=== PATIENT | female | born 1950 | race Two or more races ===

== ENCOUNTER 2020-05-28 09:26 | Inpatient (IN) | payer MEDICARE, MEDICAID ==
[~2020-05-28] VITALS: Ht 157.5 cm; Wt 91.7 kg
[2020-05-28 10:20] LABS: Basophils # (auto) 0 10 ^3/uL (0-0.2); Basophils % (auto) 0.4 % (0.0-2.0); Eosinophils # (auto) 0 10 ^3/uL (0-0.8); Eosinophils % (auto) 0.1 % (0.0-7.0); Hematocrit 42.8 % (36.0-46.0); Hemoglobin 13.9 g/dL (12.2-16.2); Lymphocytes % (auto) 13.2 % (10.0-50.0); Mean Corpuscular Hemoglobin 29.2 pg (28.0-32.0); Mean Corpuscular Hgb Conc. 32.5 g/dL (32.0-36.0); Mean Corpuscular Volume 89.7 fL (80.0-100.0); Monocytes # (auto) 0.1 10 ^3/uL (0-1.3); Monocytes % (auto) 1.9 % (0.0-12.0); Neutrophils # (auto) 6.5 10 ^3/uL (1.6-8.6); Neutrophils % (auto) 84.4 % (37.0-80.0); Nucleated Red Blood Cells % 0.1 %; Platelet Count (auto) 150 10^3/uL (140-450); Red Blood Cells 4.77 10^6/uL (4.0-5.20); Red Cell Distribution Width 13.8 % (11.8-14.3); White Blood Cell 7.7 10^3/uL (4.4-10.8)
[2020-05-28 10:37] LABS: Albumin 2.6 g/dL (3.4-5.0); Calcium 8.9 mg/dL (8.5-10.1)
[2020-05-28 10:43] LABS: Bilirubin, Total 0.3 mg/dL (0.2-1.0); Total Protein 7.2 g/dL (6.4-8.2)
[2020-05-28] MEDS ORDERED: levoFLOXacin 750MG 150 ML IV ONE (14:45)
[2020-05-28] MEDS ORDERED: REMDESIVIR PER PHARMACY 0 ML IV SCH (16:45)
[2020-05-28] MEDS ORDERED: NITROGLYCERIN 0.4 MG SL TAB SL PRN (16:45)
[2020-05-28] MEDS ORDERED: MORPHINE SULF INJ 2 MG/ML SYRINGE 1ML IV PRN (16:45)
[2020-05-28 18:17] LABS: CRP High Sensitivity 8.92 mg/dL (< 0.3)
[2020-05-28] MEDS: BUDESONIDE (INHALATION) 180 MCG IH IN SCH (20:15)
[2020-05-28] MEDS: ENOXAPARIN SOD 40 MG/0.4 ML SYRINGE SC SCH (21:42)
[2020-05-28] MEDS ORDERED: BUDESONIDE (INHALATION) 0.5 MG/2 ML NEB NEB SCH (22:00)
[2020-05-29 06:09] LABS: Basophils # (auto) 0 10 ^3/uL (0-0.2); Basophils % (auto) 0.1 % (0.0-2.0); Eosinophils # (auto) 0 10 ^3/uL (0-0.8); Hematocrit 38.2 % (36.0-46.0); Hemoglobin 13.5 g/dL (12.2-16.2); Lymphocytes % (auto) 16.2 % (10.0-50.0); Mean Corpuscular Hemoglobin 30.6 pg (28.0-32.0); Mean Corpuscular Hgb Conc. 35.5 g/dL (32.0-36.0); Mean Corpuscular Volume 86.2 fL (80.0-100.0); Monocytes # (auto) 0.4 10 ^3/uL (0-1.3); Monocytes % (auto) 6.4 % (0.0-12.0); Neutrophils # (auto) 4.9 10 ^3/uL (1.6-8.6); Neutrophils % (auto) 77.3 % (37.0-80.0); Platelet Count (auto) 169 10^3/uL (140-450); Red Blood Cells 4.43 10^6/uL (4.0-5.20); Red Cell Distribution Width 13.7 % (11.8-14.3); White Blood Cell 6.3 10^3/uL (4.4-10.8)
[2020-05-29] MEDS: AZITHROMYCIN 500MG/ 250ML 250 ML IV SCH (10:00)
[2020-05-29] MEDS: DexAMETHasone SOD PHOS 10MG/1ML VIAL INJ IV SCH (11:45)
[2020-05-29] MEDS: CHOLECALCIFEROL (VITD3) 2,000 UNIT CAP/TAB PO SCH (11:58)
[2020-05-29] MEDS: ZINC SULFATE 220mg CAP or TAB PO SCH (11:58)
[2020-05-29] MEDS: cefTRIAXone 1GM/50ML D5W 50 ML IV SCH (11:58)
[2020-05-29] MEDS: ENOXAPARIN SOD 40 MG/0.4 ML SYRINGE SC SCH ×2 (11:58→21:39)
[2020-05-29] MEDS: ASCORBIC ACID 1,000 MG TAB PO SCH (11:58)
[2020-05-29] MEDS: FAMOTIDINE 20 MG TAB PO SCH (11:58)
[2020-05-29] MEDS ORDERED: REMDESIVIR 200 MG in NS 210ml LOADING DOSE ADULT IV ONE (15:00)
[2020-05-29] MEDS: MORPHINE SULF INJ 2 MG/ML SYRINGE 1ML IV PRN ×2 (15:21→21:40)
[2020-05-29] MEDS ORDERED: FUROSEMIDE 20 MG/2 ML VIAL IV ONE (18:15)
[2020-05-29 18:47] VITALS: BP 149/77
[2020-05-29] MEDS: BUDESONIDE (INHALATION) 180 MCG IH IN SCH (20:14)
[2020-05-30] VITALS: BP 130/73
[2020-05-30] MEDS: BUDESONIDE (INHALATION) 180 MCG IH IN SCH ×2 (07:04→22:00)
[2020-05-30 08:00] VITALS: BP 137/51
[2020-05-30 08:26] LABS: Basophils # (auto) 0 10 ^3/uL (0-0.2); Basophils % (auto) 0.5 % (0.0-2.0); Eosinophils # (auto) 0 10 ^3/uL (0-0.8); Hematocrit 37.8 % (36.0-46.0); Lymphocytes # (auto) 0.6 10 ^3/uL (0.4-5.4); Lymphocytes % (auto) 10.9 % (10.0-50.0); Mean Corpuscular Hgb Conc. 34.5 g/dL (32.0-36.0); Mean Corpuscular Volume 87.1 fL (80.0-100.0); Monocytes # (auto) 0.5 10 ^3/uL (0-1.3); Monocytes % (auto) 8.4 % (0.0-12.0); Neutrophils # (auto) 4.3 10 ^3/uL (1.6-8.6); Neutrophils % (auto) 80.2 % (37.0-80.0); Nucleated Red Blood Cells % 0.1 %; Platelet Count (auto) 207 10^3/uL (140-450); Red Blood Cells 4.34 10^6/uL (4.0-5.20); Red Cell Distribution Width 13.5 % (11.8-14.3); White Blood Cell 5.4 10^3/uL (4.4-10.8)
[2020-05-30 09:01] LABS: Albumin 2.6 g/dL (3.4-5.0); Calcium 9.1 mg/dL (8.5-10.1); Potassium 3.7 mmol/L (3.5-5.1)
[2020-05-30 09:10] LABS: Bilirubin, Total 0.4 mg/dL (0.2-1.0); CRP High Sensitivity 5.9 mg/dL (< 0.3); Total Protein 7.6 g/dL (6.4-8.2)
[2020-05-30] MEDS: FAMOTIDINE 20 MG TAB PO SCH ×2 (10:00→10:25)
[2020-05-30] MEDS: cefTRIAXone 1GM/50ML D5W 50 ML IV SCH (10:23)
[2020-05-30] MEDS: ZINC SULFATE 220mg CAP or TAB PO SCH (10:24)
[2020-05-30] MEDS: FUROSEMIDE 20 MG/2 ML VIAL IV SCH (10:24)
[2020-05-30] MEDS: DexAMETHasone SOD PHOS 10MG/1ML VIAL INJ IV SCH (10:24)
[2020-05-30] MEDS: CHOLECALCIFEROL (VITD3) 2,000 UNIT CAP/TAB PO SCH (10:25)
[2020-05-30] MEDS: ASCORBIC ACID 1,000 MG TAB PO SCH (10:25)
[2020-05-30] MEDS: ENOXAPARIN SOD 40 MG/0.4 ML SYRINGE SC SCH ×2 (10:25→22:27)
[2020-05-30] MEDS ORDERED: HYDROCORTISONE ACET 25 MG RECTAL SUPP PR PRN (11:15)
[2020-05-30] MEDS: AZITHROMYCIN 500MG/ 250ML 250 ML IV SCH (11:55)
[2020-05-30 16:00] VITALS: BP 139/88
[2020-05-30] MEDS: REMDESIVIR 100 MG in SODIUM CHL 0.9% 250 ML IV SCH (16:51)
[2020-05-30] MEDS: HYDROcodone-ACET 5/325MG TAB PO PRN (18:44)
[2020-05-31] VITALS: BP 151/74
[2020-05-31 07:06] LABS: Basophils # (auto) 0 10 ^3/uL (0-0.2); Basophils % (auto) 0.1 % (0.0-2.0); Eosinophils # (auto) 0 10 ^3/uL (0-0.8); Hematocrit 40.7 % (36.0-46.0); Hemoglobin 14.1 g/dL (12.2-16.2); Lymphocytes # (auto) 0.6 10 ^3/uL (0.4-5.4); Lymphocytes % (auto) 8.1 % (10.0-50.0); Mean Corpuscular Hemoglobin 30.3 pg (28.0-32.0); Mean Corpuscular Hgb Conc. 34.7 g/dL (32.0-36.0); Mean Corpuscular Volume 87.3 fL (80.0-100.0); Monocytes # (auto) 0.8 10 ^3/uL (0-1.3); Monocytes % (auto) 11.3 % (0.0-12.0); Neutrophils # (auto) 5.9 10 ^3/uL (1.6-8.6); Neutrophils % (auto) 80.5 % (37.0-80.0); Nucleated Red Blood Cells % 0.1 %; Platelet Count (auto) 251 10^3/uL (140-450); Red Blood Cells 4.67 10^6/uL (4.0-5.20); Red Cell Distribution Width 13.1 % (11.8-14.3); White Blood Cell 7.4 10^3/uL (4.4-10.8)
[2020-05-31 08:00] VITALS: BP 144/82
[2020-05-31] MEDS: BUDESONIDE (INHALATION) 180 MCG IH IN SCH ×2 (10:00→21:25)
[2020-05-31] MEDS: cefTRIAXone 1GM/50ML D5W 50 ML IV SCH (10:42)
[2020-05-31] MEDS: DexAMETHasone SOD PHOS 10MG/1ML VIAL INJ IV SCH (10:42)
[2020-05-31] MEDS: ZINC SULFATE 220mg CAP or TAB PO SCH (10:45)
[2020-05-31] MEDS: CHOLECALCIFEROL (VITD3) 2,000 UNIT CAP/TAB PO SCH (10:46)
[2020-05-31] MEDS: FAMOTIDINE 20 MG TAB PO SCH (10:46)
[2020-05-31] MEDS: ASCORBIC ACID 1,000 MG TAB PO SCH (10:46)
[2020-05-31] MEDS: ENOXAPARIN SOD 40 MG/0.4 ML SYRINGE SC SCH ×2 (10:48→21:41)
[2020-05-31] MEDS: AZITHROMYCIN 500MG/ 250ML 250 ML IV SCH (10:48)
[2020-05-31] MEDS: MORPHINE SULF INJ 2 MG/ML SYRINGE 1ML IV PRN ×2 (10:49→18:57)
[2020-05-31] MEDS: FUROSEMIDE 20 MG/2 ML VIAL IV SCH (11:11)
[2020-05-31 16:00] VITALS: BP 134/70
[2020-05-31] MEDS: REMDESIVIR 100 MG in SODIUM CHL 0.9% 250 ML IV SCH (16:10)
[2020-05-31 23:57] VITALS: BP 106/56
[2020-06-01] MEDS: ACETAMINOPHEN 500 MG TAB PO PRN (01:50)
[2020-06-01] MEDS: ALBUTEROL SULF HFA 90MCG INH 200DOSE IN PRN ×2 (03:42→20:03)
[2020-06-01] MEDS: LORazepam 2MG/ML-1ML VIAL IV PRN ×3 (05:24→23:23)
[2020-06-01 05:52] VITALS: BP 146/97
[2020-06-01 08:00] VITALS: BP 121/64
[2020-06-01] MEDS: ENOXAPARIN SOD 40 MG/0.4 ML SYRINGE SC SCH ×2 (10:00→21:49)
[2020-06-01] MEDS: BUDESONIDE (INHALATION) 180 MCG IH IN SCH ×2 (10:00→20:03)
[2020-06-01] MEDS: DexAMETHasone SOD PHOS 10MG/1ML VIAL INJ IV SCH (10:02)
[2020-06-01] MEDS: cefTRIAXone 1GM/50ML D5W 50 ML IV SCH (10:02)
[2020-06-01] MEDS: FUROSEMIDE 20 MG/2 ML VIAL IV SCH (10:03)
[2020-06-01] MEDS: ZINC SULFATE 220mg CAP or TAB PO SCH (10:04)
[2020-06-01] MEDS: AZITHROMYCIN 500MG/ 250ML 250 ML IV SCH (10:04)
[2020-06-01] MEDS: CHOLECALCIFEROL (VITD3) 2,000 UNIT CAP/TAB PO SCH (10:04)
[2020-06-01] MEDS: ASCORBIC ACID 1,000 MG TAB PO SCH (10:04)
[2020-06-01] MEDS: FAMOTIDINE 20 MG TAB PO SCH (10:05)
[2020-06-01] MEDS ORDERED: SODIUM CHLORIDE 0.9 % NEB SOLN 3ML NEB ONE (12:30)
[2020-06-01 16:00] VITALS: BP 103/95
[2020-06-01] MEDS: REMDESIVIR 100 MG in SODIUM CHL 0.9% 250 ML IV SCH (17:19)
[2020-06-01 23:24] VITALS: BP 115/58
[2020-06-02] VITALS (7 sets, daily range): BP systolic 107–133; BP diastolic 52–79
[2020-06-02] MEDS: BUDESONIDE (INHALATION) 180 MCG IH IN SCH ×2 (07:07→19:20)
[2020-06-02 08:51] LABS: Albumin 2.7 g/dL (3.4-5.0); BUN/Creatinine Ratio 40.9; Calcium 8.8 mg/dL (8.5-10.1); Potassium 3.4 mmol/L (3.5-5.1)
[2020-06-02] MEDS: ALBUTEROL SULF HFA 90MCG INH 200DOSE IN PRN ×2 (08:56→20:38)
[2020-06-02 09:12] LABS: Bilirubin, Total 0.5 mg/dL (0.2-1.0); Total Protein 6.8 g/dL (6.4-8.2)
[2020-06-02] MEDS: ENOXAPARIN SOD 40 MG/0.4 ML SYRINGE SC SCH ×2 (10:24→21:44)
[2020-06-02] MEDS: DexAMETHasone SOD PHOS 10MG/1ML VIAL INJ IV SCH (10:24)
[2020-06-02] MEDS: ZINC SULFATE 220mg CAP or TAB PO SCH (10:24)
[2020-06-02] MEDS: ASCORBIC ACID 1,000 MG TAB PO SCH (10:24)
[2020-06-02] MEDS: cefTRIAXone 1GM/50ML D5W 50 ML IV SCH (10:24)
[2020-06-02] MEDS: FUROSEMIDE 20 MG/2 ML VIAL IV SCH (10:25)
[2020-06-02] MEDS: CHOLECALCIFEROL (VITD3) 2,000 UNIT CAP/TAB PO SCH (10:25)
[2020-06-02] MEDS: FAMOTIDINE 20 MG TAB PO SCH (10:25)
[2020-06-02] MEDS: AZITHROMYCIN 500MG/ 250ML 250 ML IV SCH (11:06)
[2020-06-02] MEDS: LORazepam 2MG/ML-1ML VIAL IV PRN ×2 (11:06→21:44)
[2020-06-02] MEDS: REMDESIVIR 100 MG in SODIUM CHL 0.9% 250 ML IV SCH (16:58)
[2020-06-03] VITALS: BP 133/74
[2020-06-03 08:00] VITALS: BP 119/74
[2020-06-03] MEDS: cefTRIAXone 1GM/50ML D5W 50 ML IV SCH (08:47)
[2020-06-03] MEDS: FUROSEMIDE 20 MG/2 ML VIAL IV SCH (09:47)
[2020-06-03] MEDS: AZITHROMYCIN 500MG/ 250ML 250 ML IV SCH (09:47)
[2020-06-03] MEDS: ENOXAPARIN SOD 40 MG/0.4 ML SYRINGE SC SCH ×2 (09:48→21:27)
[2020-06-03] MEDS: CHOLECALCIFEROL (VITD3) 2,000 UNIT CAP/TAB PO SCH (09:48)
[2020-06-03] MEDS: ASCORBIC ACID 1,000 MG TAB PO SCH (09:48)
[2020-06-03] MEDS: DexAMETHasone SOD PHOS 10MG/1ML VIAL INJ IV SCH (09:48)
[2020-06-03] MEDS: ZINC SULFATE 220mg CAP or TAB PO SCH (09:48)
[2020-06-03] MEDS: FAMOTIDINE 20 MG TAB PO SCH (09:48)
[2020-06-03] MEDS: BUDESONIDE (INHALATION) 180 MCG IH IN SCH ×2 (10:00→20:37)
[2020-06-03] MEDS: ONDANSETRON HCL 4 MG/2 ML VIAL IV PRN (10:23)
[2020-06-03 16:00] VITALS: BP 111/71
[2020-06-03] MEDS: ALBUTEROL SULF HFA 90MCG INH 200DOSE IN PRN (20:37)
[2020-06-03] MEDS: LORazepam 2MG/ML-1ML VIAL IV PRN (21:28)
[2020-06-04] VITALS: BP 119/69
[2020-06-04 07:06] LABS: Basophils # (auto) 0 10 ^3/uL (0-0.2); Basophils % (auto) 0.1 % (0.0-2.0); Eosinophils # (auto) 0 10 ^3/uL (0-0.8); Hematocrit 40.7 % (36.0-46.0); Hemoglobin 13.8 g/dL (12.2-16.2); Lymphocytes # (auto) 0.7 10 ^3/uL (0.4-5.4); Lymphocytes % (auto) 4.9 % (10.0-50.0); Mean Corpuscular Hemoglobin 29.2 pg (28.0-32.0); Mean Corpuscular Volume 85.9 fL (80.0-100.0); Monocytes # (auto) 0.8 10 ^3/uL (0-1.3); Monocytes % (auto) 5.1 % (0.0-12.0); Neutrophils # (auto) 13.6 10 ^3/uL (1.6-8.6); Neutrophils % (auto) 89.9 % (37.0-80.0); Platelet Count (auto) 322 10^3/uL (140-450); Red Blood Cells 4.73 10^6/uL (4.0-5.20); White Blood Cell 15.1 10^3/uL (4.4-10.8)
[2020-06-04 07:22] LABS: Albumin 2.5 g/dL (3.4-5.0); Calcium 8.7 mg/dL (8.5-10.1); Potassium 3.8 mmol/L (3.5-5.1)
[2020-06-04 07:32] LABS: BUN/Creatinine Ratio 38.8; Bilirubin, Total 0.4 mg/dL (0.2-1.0); CRP High Sensitivity 3.62 mg/dL (< 0.3); Total Protein 6.8 g/dL (6.4-8.2)
[2020-06-04 08:00] VITALS: BP 111/64
[2020-06-04] MEDS: cefTRIAXone 1GM/50ML D5W 50 ML IV SCH (08:51)
[2020-06-04] MEDS: BUDESONIDE (INHALATION) 180 MCG IH IN SCH ×3 (08:51→20:20)
[2020-06-04] MEDS: FUROSEMIDE 20 MG/2 ML VIAL IV SCH (08:51)
[2020-06-04] MEDS: DexAMETHasone SOD PHOS 10MG/1ML VIAL INJ IV SCH (08:51)
[2020-06-04] MEDS: ZINC SULFATE 220mg CAP or TAB PO SCH (08:52)
[2020-06-04] MEDS: ENOXAPARIN SOD 40 MG/0.4 ML SYRINGE SC SCH ×2 (08:52→21:44)
[2020-06-04] MEDS: FAMOTIDINE 20 MG TAB PO SCH (08:52)
[2020-06-04] MEDS: ASCORBIC ACID 1,000 MG TAB PO SCH (08:52)
[2020-06-04] MEDS: CHOLECALCIFEROL (VITD3) 2,000 UNIT CAP/TAB PO SCH (08:52)
[2020-06-04] MEDS: HYDROcodone-ACET 5/325MG TAB PO PRN (08:54)
[2020-06-04] MEDS: ALBUTEROL SULF HFA 90MCG INH 200DOSE IN PRN ×2 (12:59→20:20)
[2020-06-04 16:00] VITALS: BP 110/61
[2020-06-04] MEDS: LORazepam 2MG/ML-1ML VIAL IV PRN (21:44)
[2020-06-05] VITALS: BP 127/73
[2020-06-05] MEDS: ALBUTEROL SULF HFA 90MCG INH 200DOSE IN PRN ×2 (07:45→20:50)
[2020-06-05 08:00] VITALS: BP 108/45
[2020-06-05] MEDS: cefTRIAXone 1GM/50ML D5W 50 ML IV SCH (09:00)
[2020-06-05] MEDS: DexAMETHasone SOD PHOS 10MG/1ML VIAL INJ IV SCH (09:54)
[2020-06-05] MEDS: FUROSEMIDE 20 MG/2 ML VIAL IV SCH (09:54)
[2020-06-05] MEDS: ASCORBIC ACID 1,000 MG TAB PO SCH (09:55)
[2020-06-05] MEDS: ZINC SULFATE 220mg CAP or TAB PO SCH (09:55)
[2020-06-05] MEDS: ENOXAPARIN SOD 40 MG/0.4 ML SYRINGE SC SCH ×2 (09:55→22:26)
[2020-06-05] MEDS: CHOLECALCIFEROL (VITD3) 2,000 UNIT CAP/TAB PO SCH (09:55)
[2020-06-05] MEDS: FAMOTIDINE 20 MG TAB PO SCH (09:55)
[2020-06-05] MEDS: ONDANSETRON HCL 4 MG/2 ML VIAL IV PRN (10:53)
[2020-06-05] MEDS ORDERED: FLUCONAZOLE 100 MG TAB PO ONE (11:45)
[2020-06-05] MEDS: guaiFENesin-DM 100/10mg/5ml SYR PO PRN ×2 (12:32→18:16)
[2020-06-05 15:59] VITALS: BP 111/74
[2020-06-05] MEDS: BUDESONIDE (INHALATION) 180 MCG IH IN SCH (20:55)
[2020-06-05 23:38] VITALS: BP 90/58
[2020-06-06] MEDS: guaiFENesin-DM 100/10mg/5ml SYR PO PRN ×3 (00:27→17:30)
[2020-06-06] MEDS: BUDESONIDE (INHALATION) 180 MCG IH IN SCH ×2 (06:48→20:03)
[2020-06-06] MEDS: ALBUTEROL SULF HFA 90MCG INH 200DOSE IN PRN ×2 (07:24→20:03)
[2020-06-06 08:00] VITALS: BP 135/70
[2020-06-06] MEDS: cefTRIAXone 1GM/50ML D5W 50 ML IV SCH (09:11)
[2020-06-06] MEDS: DexAMETHasone SOD PHOS 10MG/1ML VIAL INJ IV SCH (09:11)
[2020-06-06] MEDS: FUROSEMIDE 20 MG/2 ML VIAL IV SCH (09:12)
[2020-06-06] MEDS: ZINC SULFATE 220mg CAP or TAB PO SCH (09:12)
[2020-06-06] MEDS: ASCORBIC ACID 1,000 MG TAB PO SCH (09:13)
[2020-06-06] MEDS: FAMOTIDINE 20 MG TAB PO SCH (09:13)
[2020-06-06] MEDS: CHOLECALCIFEROL (VITD3) 2,000 UNIT CAP/TAB PO SCH (09:13)
[2020-06-06] MEDS: FLUCONAZOLE 100 MG TAB PO SCH (09:13)
[2020-06-06] MEDS: ENOXAPARIN SOD 40 MG/0.4 ML SYRINGE SC SCH ×2 (09:14→22:18)
[2020-06-06 13:00] VITALS: BP 122/61
[2020-06-06 17:00] VITALS: BP 118/67
[2020-06-06 20:00] VITALS: BP 118/67
[2020-06-06] MEDS: LORazepam 2MG/ML-1ML VIAL IV PRN (22:18)
[2020-06-07] VITALS: BP 121/68
[2020-06-07 00:20] VITALS: BP 121/68
[2020-06-07] MEDS: HALOPERIDOL LACTATE 5 MG/ML INJ VIAL IM PRN (02:07)
[2020-06-07] MEDS: guaiFENesin-DM 100/10mg/5ml SYR PO PRN ×2 (04:37→16:26)
[2020-06-07 08:00] VITALS: BP 150/74
[2020-06-07] MEDS: FUROSEMIDE 20 MG/2 ML VIAL IV SCH (10:00)
[2020-06-07] MEDS: BUDESONIDE (INHALATION) 180 MCG IH IN SCH ×2 (10:22→19:15)
[2020-06-07] MEDS: ALBUTEROL SULF HFA 90MCG INH 200DOSE IN PRN ×2 (10:22→21:00)
[2020-06-07] MEDS: DexAMETHasone SOD PHOS 10MG/1ML VIAL INJ IV SCH (11:00)
[2020-06-07] MEDS: cefTRIAXone 1GM/50ML D5W 50 ML IV SCH (11:00)
[2020-06-07] MEDS: ENOXAPARIN SOD 40 MG/0.4 ML SYRINGE SC SCH ×2 (11:00→22:23)
[2020-06-07] MEDS: ZINC SULFATE 220mg CAP or TAB PO SCH (11:00)
[2020-06-07] MEDS: CHOLECALCIFEROL (VITD3) 2,000 UNIT CAP/TAB PO SCH (11:00)
[2020-06-07] MEDS: ASCORBIC ACID 1,000 MG TAB PO SCH (11:00)
[2020-06-07] MEDS: FLUCONAZOLE 100 MG TAB PO SCH (11:00)
[2020-06-07] MEDS: FAMOTIDINE 20 MG TAB PO SCH (11:00)
[2020-06-07 16:00] VITALS: BP 127/50
[2020-06-07] MEDS: LORazepam 2MG/ML-1ML VIAL IV PRN (23:01)
[2020-06-08] VITALS: BP 122/73
[2020-06-08 02:08] LABS: Basophils # (auto) 0 10 ^3/uL (0-0.2); Eosinophils # (auto) 0 10 ^3/uL (0-0.8); Hematocrit 42.2 % (36.0-46.0); Hemoglobin 14.2 g/dL (12.2-16.2); Lymphocytes # (auto) 0.4 10 ^3/uL (0.4-5.4); Lymphocytes % (auto) 3.6 % (10.0-50.0); Mean Corpuscular Hemoglobin 29.3 pg (28.0-32.0); Mean Corpuscular Hgb Conc. 33.7 g/dL (32.0-36.0); Mean Corpuscular Volume 87.1 fL (80.0-100.0); Monocytes # (auto) 0.6 10 ^3/uL (0-1.3); Monocytes % (auto) 5.3 % (0.0-12.0); Neutrophils % (auto) 91.1 % (37.0-80.0); Platelet Count (auto) 300 10^3/uL (140-450); Red Blood Cells 4.84 10^6/uL (4.0-5.20)
[2020-06-08 02:30] LABS: Albumin 2.5 g/dL (3.4-5.0); Calcium 9.1 mg/dL (8.5-10.1)
[2020-06-08 02:35] LABS: BUN/Creatinine Ratio 28.9; Bilirubin, Total 0.4 mg/dL (0.2-1.0); CRP High Sensitivity 0.8 mg/dL (< 0.3); Total Protein 6.9 g/dL (6.4-8.2)
[2020-06-08] MEDS: BUDESONIDE (INHALATION) 180 MCG IH IN SCH ×2 (07:20→18:58)
[2020-06-08 08:00] VITALS: BP 121/72
[2020-06-08] MEDS: FUROSEMIDE 20 MG/2 ML VIAL IV SCH (10:00)
[2020-06-08] MEDS: ENOXAPARIN SOD 40 MG/0.4 ML SYRINGE SC SCH ×2 (11:12→22:11)
[2020-06-08] MEDS: cefTRIAXone 1GM/50ML D5W 50 ML IV SCH (11:12)
[2020-06-08] MEDS: DexAMETHasone SOD PHOS 10MG/1ML VIAL INJ IV SCH (11:12)
[2020-06-08] MEDS: CHOLECALCIFEROL (VITD3) 2,000 UNIT CAP/TAB PO SCH (11:13)
[2020-06-08] MEDS: FAMOTIDINE 20 MG TAB PO SCH (11:13)
[2020-06-08] MEDS: ASCORBIC ACID 1,000 MG TAB PO SCH (11:14)
[2020-06-08] MEDS: guaiFENesin-DM 100/10mg/5ml SYR PO PRN (11:14)
[2020-06-08] MEDS: FLUCONAZOLE 100 MG TAB PO SCH (11:14)
[2020-06-08] MEDS: ZINC SULFATE 220mg CAP or TAB PO SCH (11:14)
[2020-06-08 16:00] VITALS: BP 109/59
[2020-06-08] MEDS: HYDROcodone-ACET 5/325MG TAB PO PRN (18:11)
[2020-06-08] MEDS: ALBUTEROL SULF HFA 90MCG INH 200DOSE IN PRN (18:58)
[2020-06-08] MEDS: LORazepam 2MG/ML-1ML VIAL IV PRN (22:11)
[2020-06-09] VITALS: BP 119/67
[2020-06-09] MEDS: HALOPERIDOL LACTATE 5 MG/ML INJ VIAL IM PRN (00:36)
[2020-06-09 05:50] LABS: Basophils # (auto) 0.1 10 ^3/uL (0-0.2); Basophils % (auto) 0.8 % (0.0-2.0); Eosinophils # (auto) 0 10 ^3/uL (0-0.8); Hemoglobin 13.9 g/dL (12.2-16.2); Lymphocytes # (auto) 0.5 10 ^3/uL (0.4-5.4); Lymphocytes % (auto) 4.4 % (10.0-50.0); Mean Corpuscular Hemoglobin 29.5 pg (28.0-32.0); Monocytes # (auto) 0.6 10 ^3/uL (0-1.3); Monocytes % (auto) 5.9 % (0.0-12.0); Neutrophils # (auto) 9.6 10 ^3/uL (1.6-8.6); Neutrophils % (auto) 88.9 % (37.0-80.0); Nucleated Red Blood Cells % 0.1 %; Platelet Count (auto) 289 10^3/uL (140-450); Red Blood Cells 4.72 10^6/uL (4.0-5.20); Red Cell Distribution Width 13.3 % (11.8-14.3); White Blood Cell 10.8 10^3/uL (4.4-10.8)
[2020-06-09 06:07] LABS: INR 1.13 (0.9-1.15); Partial Thromboplastin Time 27.6 sec (23.0-31.2)
[2020-06-09 06:16] LABS: Potassium 4.1 mmol/L (3.5-5.1)
[2020-06-09 06:22] LABS: Albumin 2.6 g/dL (3.4-5.0); BUN/Creatinine Ratio 31.3; Bilirubin, Total 0.5 mg/dL (0.2-1.0); Calcium 8.6 mg/dL (8.5-10.1); Magnesium 2.6 mg/dL (1.6-2.6); Phosphorus 3.9 mg/dL (2.5-4.90); Total Protein 6.5 g/dL (6.4-8.2)
[2020-06-09] MEDS: BUDESONIDE (INHALATION) 180 MCG IH IN SCH ×2 (07:15→19:11)
[2020-06-09 08:00] VITALS: BP 137/69
[2020-06-09] MEDS: cefTRIAXone 1GM/50ML D5W 50 ML IV SCH (09:22)
[2020-06-09] MEDS: DexAMETHasone SOD PHOS 10MG/1ML VIAL INJ IV SCH (09:22)
[2020-06-09] MEDS: FLUCONAZOLE 100 MG TAB PO SCH (09:23)
[2020-06-09] MEDS: ENOXAPARIN SOD 40 MG/0.4 ML SYRINGE SC SCH ×2 (09:23→22:01)
[2020-06-09] MEDS: CHOLECALCIFEROL (VITD3) 2,000 UNIT CAP/TAB PO SCH (09:23)
[2020-06-09] MEDS: ASCORBIC ACID 1,000 MG TAB PO SCH (09:23)
[2020-06-09] MEDS: ZINC SULFATE 220mg CAP or TAB PO SCH (09:23)
[2020-06-09] MEDS ORDERED: FUROSEMIDE 40 MG/4 ML VIAL IV SCH (10:00)
[2020-06-09] MEDS: FAMOTIDINE 20 MG TAB PO SCH (10:00)
[2020-06-09] MEDS: guaiFENesin-DM 100/10mg/5ml SYR PO PRN (12:40)
[2020-06-09 16:00] VITALS: BP 134/74
[2020-06-09] MEDS: ALBUTEROL SULF HFA 90MCG INH 200DOSE IN PRN (19:11)
[2020-06-09] MEDS: LORazepam 2MG/ML-1ML VIAL IV PRN (21:51)
[2020-06-10] VITALS: BP 121/77
[2020-06-10] MEDS: ACETAMINOPHEN 500 MG TAB PO PRN ×2 (04:06→21:22)
[2020-06-10 08:00] VITALS: BP 100/60
[2020-06-10] MEDS: FLORASTOR (S. BOULARDII) 250 MG CAP PO SCH (08:58)
[2020-06-10] MEDS: cefTRIAXone 1GM/50ML D5W 50 ML IV SCH (08:58)
[2020-06-10] MEDS: ENOXAPARIN SOD 40 MG/0.4 ML SYRINGE SC SCH ×2 (08:58→20:33)
[2020-06-10] MEDS: DexAMETHasone SOD PHOS 10MG/1ML VIAL INJ IV SCH (08:58)
[2020-06-10] MEDS: FUROSEMIDE 40 MG/4 ML VIAL IV SCH (08:58)
[2020-06-10] MEDS: FAMOTIDINE 20 MG TAB PO SCH (08:59)
[2020-06-10] MEDS: CHOLECALCIFEROL (VITD3) 2,000 UNIT CAP/TAB PO SCH (08:59)
[2020-06-10] MEDS: ASCORBIC ACID 1,000 MG TAB PO SCH (08:59)
[2020-06-10] MEDS: ZINC SULFATE 220mg CAP or TAB PO SCH (08:59)
[2020-06-10] MEDS: FLUCONAZOLE 100 MG TAB PO SCH (08:59)
[2020-06-10] MEDS: POTASSIUM CHL 10 Meq TABLET PO SCH (10:00)
[2020-06-10] MEDS: BUDESONIDE (INHALATION) 180 MCG IH IN SCH ×2 (10:13→19:05)
[2020-06-10] MEDS: ALBUTEROL SULF HFA 90MCG INH 200DOSE IN PRN ×2 (10:13→19:05)
[2020-06-10] MEDS: guaiFENesin-DM 100/10mg/5ml SYR PO PRN (13:59)
[2020-06-10 16:30] VITALS: BP 127/66
[2020-06-10] MEDS: LORazepam 2MG/ML-1ML VIAL IV PRN (20:33)
[2020-06-11] VITALS: BP 112/77
[2020-06-11] MEDS: LORazepam 2MG/ML-1ML VIAL IV PRN ×3 (06:52→23:12)
[2020-06-11] MEDS: guaiFENesin-DM 100/10mg/5ml SYR PO PRN (06:52)
[2020-06-11] MEDS: BUDESONIDE (INHALATION) 180 MCG IH IN SCH ×2 (07:02→21:47)
[2020-06-11] MEDS: ALBUTEROL SULF HFA 90MCG INH 200DOSE IN PRN ×2 (07:02→21:47)
[2020-06-11 08:00] VITALS: BP 123/64
[2020-06-11] MEDS: DexAMETHasone SOD PHOS 10MG/1ML VIAL INJ IV SCH (09:21)
[2020-06-11] MEDS: FUROSEMIDE 40 MG/4 ML VIAL IV SCH (09:21)
[2020-06-11] MEDS: FLUCONAZOLE 100 MG TAB PO SCH ×2 (09:22→09:44)
[2020-06-11] MEDS: ENOXAPARIN SOD 40 MG/0.4 ML SYRINGE SC SCH ×3 (09:22→22:43)
[2020-06-11] MEDS: ZINC SULFATE 220mg CAP or TAB PO SCH ×2 (09:22→09:44)
[2020-06-11] MEDS: CHOLECALCIFEROL (VITD3) 2,000 UNIT CAP/TAB PO SCH ×2 (09:23→09:44)
[2020-06-11] MEDS: ASCORBIC ACID 1,000 MG TAB PO SCH ×2 (09:23→09:44)
[2020-06-11] MEDS: FAMOTIDINE 20 MG TAB PO SCH ×2 (09:23→09:44)
[2020-06-11] MEDS: FLORASTOR (S. BOULARDII) 250 MG CAP PO SCH ×2 (09:24→09:44)
[2020-06-11] MEDS: POTASSIUM CHL 10 Meq TABLET PO SCH ×2 (09:24→09:44)
[2020-06-11 16:00] VITALS: BP 126/73
[2020-06-12] VITALS: BP 107/85
[2020-06-12] MEDS: ACETAMINOPHEN 500 MG TAB PO PRN (01:26)
[2020-06-12] MEDS: guaiFENesin-DM 100/10mg/5ml SYR PO PRN ×2 (01:26→05:32)
[2020-06-12 06:50] LABS: Basophils # (auto) 0.1 10 ^3/uL (0-0.2); Basophils % (auto) 0.3 % (0.0-2.0); Eosinophils # (auto) 0 10 ^3/uL (0-0.8); Eosinophils % (auto) 0.1 % (0.0-7.0); Hematocrit 45.6 % (36.0-46.0); Hemoglobin 15.4 g/dL (12.2-16.2); Lymphocytes # (auto) 0.7 10 ^3/uL (0.4-5.4); Lymphocytes % (auto) 3.9 % (10.0-50.0); Mean Corpuscular Hemoglobin 29.6 pg (28.0-32.0); Mean Corpuscular Hgb Conc. 33.8 g/dL (32.0-36.0); Mean Corpuscular Volume 87.5 fL (80.0-100.0); Monocytes # (auto) 0.6 10 ^3/uL (0-1.3); Monocytes % (auto) 3.7 % (0.0-12.0); Neutrophils # (auto) 16.2 10 ^3/uL (1.6-8.6); Nucleated Red Blood Cells % 0.1 %; Platelet Count (auto) 301 10^3/uL (140-450); Red Blood Cells 5.21 10^6/uL (4.0-5.20); Red Cell Distribution Width 13.2 % (11.8-14.3); White Blood Cell 17.5 10^3/uL (4.4-10.8)
[2020-06-12] MEDS: BUDESONIDE (INHALATION) 180 MCG IH IN SCH ×2 (06:51→21:16)
[2020-06-12 07:03] LABS: Albumin 2.9 g/dL (3.4-5.0); Calcium 9.1 mg/dL (8.5-10.1); Potassium 3.5 mmol/L (3.5-5.1)
[2020-06-12 07:05] LABS: INR 1.13 (0.9-1.15); Partial Thromboplastin Time 27.3 sec (23.0-31.2)
[2020-06-12 07:07] LABS: BUN/Creatinine Ratio 39.1; Bilirubin, Total 0.6 mg/dL (0.2-1.0); Phosphorus 3.5 mg/dL (2.5-4.90)
[2020-06-12 08:00] VITALS: BP_SYST 107; BP_DIAS 70; BP_DIAS 76
[2020-06-12] MEDS: FAMOTIDINE 20 MG TAB PO SCH (10:00)
[2020-06-12] MEDS: POTASSIUM CHL 10 Meq TABLET PO SCH (10:42)
[2020-06-12] MEDS: FLUCONAZOLE 100 MG TAB PO SCH (10:42)
[2020-06-12] MEDS: FLORASTOR (S. BOULARDII) 250 MG CAP PO SCH (10:42)
[2020-06-12] MEDS: ZINC SULFATE 220mg CAP or TAB PO SCH (10:42)
[2020-06-12] MEDS: DexAMETHasone SOD PHOS 10MG/1ML VIAL INJ IV SCH (10:42)
[2020-06-12] MEDS: ASCORBIC ACID 1,000 MG TAB PO SCH (10:43)
[2020-06-12] MEDS: ENOXAPARIN SOD 40 MG/0.4 ML SYRINGE SC SCH ×2 (10:43→21:42)
[2020-06-12] MEDS: CHOLECALCIFEROL (VITD3) 2,000 UNIT CAP/TAB PO SCH (10:43)
[2020-06-12] MEDS: FUROSEMIDE 40 MG/4 ML VIAL IV SCH (14:20)
[2020-06-12] MEDS: LORazepam 2MG/ML-1ML VIAL IV PRN ×2 (15:49→21:42)
[2020-06-12 16:00] VITALS: BP 101/55
[2020-06-12] MEDS: ALBUTEROL SULF HFA 90MCG INH 200DOSE IN PRN (21:17)
[2020-06-13] VITALS: BP 118/61
[2020-06-13] MEDS: ACETAMINOPHEN 500 MG TAB PO PRN ×2 (00:13→16:22)
[2020-06-13 08:00] VITALS: BP 119/69
[2020-06-13] MEDS: FAMOTIDINE 20 MG TAB PO SCH (09:20)
[2020-06-13] MEDS: ENOXAPARIN SOD 40 MG/0.4 ML SYRINGE SC SCH ×2 (09:20→21:37)
[2020-06-13] MEDS: DexAMETHasone SOD PHOS 10MG/1ML VIAL INJ IV SCH (09:20)
[2020-06-13] MEDS: FLUCONAZOLE 100 MG TAB PO SCH (09:20)
[2020-06-13] MEDS: LORazepam 2MG/ML-1ML VIAL IV PRN ×2 (09:20→21:38)
[2020-06-13] MEDS: FLORASTOR (S. BOULARDII) 250 MG CAP PO SCH (09:20)
[2020-06-13] MEDS: ONDANSETRON HCL 4 MG/2 ML VIAL IV PRN (09:27)
[2020-06-13] MEDS: ZINC SULFATE 220mg CAP or TAB PO SCH (09:49)
[2020-06-13] MEDS: ASCORBIC ACID 1,000 MG TAB PO SCH (09:49)
[2020-06-13] MEDS: CHOLECALCIFEROL (VITD3) 2,000 UNIT CAP/TAB PO SCH (09:49)
[2020-06-13] MEDS: BUDESONIDE (INHALATION) 180 MCG IH IN SCH ×2 (10:00→19:40)
[2020-06-13] MEDS ORDERED: SUCCINYLCHOLINE CHLORIDE 20 MG/ML 10ML VIAL IV ONE ×2 (11:03→11:13)
[2020-06-13] MEDS ORDERED: ROCURONIUM 10MG/ML 10ML VIAL IV ONE (11:03)
[2020-06-13] MEDS ORDERED: ETOMIDATE (2MG/ML) 20ML VIAL IV ONE ×2 (11:03→11:13)
[2020-06-13] MEDS ORDERED: PROPOFOL 0 ML IV ONE (11:13)
[2020-06-13] MEDS ORDERED: fentaNYL Drip 2500mCg/250mlNS 0 ML IV ONE (11:14)
[2020-06-13 16:04] VITALS: BP 111/71
[2020-06-13] MEDS: ALBUTEROL SULF HFA 90MCG INH 200DOSE IN PRN (19:40)
[2020-06-13 22:22] LABS: Basophils # (auto) 0 10 ^3/uL (0-0.2); Basophils % (auto) 0.1 % (0.0-2.0); Eosinophils # (auto) 0.1 10 ^3/uL (0-0.8); Eosinophils % (auto) 0.3 % (0.0-7.0); Hematocrit 44.5 % (36.0-46.0); Hemoglobin 15.1 g/dL (12.2-16.2); Lymphocytes # (auto) 1.1 10 ^3/uL (0.4-5.4); Lymphocytes % (auto) 6.1 % (10.0-50.0); Mean Corpuscular Hemoglobin 29.7 pg (28.0-32.0); Mean Corpuscular Hgb Conc. 33.9 g/dL (32.0-36.0); Mean Corpuscular Volume 87.7 fL (80.0-100.0); Monocytes # (auto) 0.7 10 ^3/uL (0-1.3); Neutrophils % (auto) 89.5 % (37.0-80.0); Nucleated Red Blood Cells % 0.1 %; Platelet Count (auto) 260 10^3/uL (140-450); Red Blood Cells 5.07 10^6/uL (4.0-5.20); Red Cell Distribution Width 13.8 % (11.8-14.3); White Blood Cell 17.9 10^3/uL (4.4-10.8)
[2020-06-13 22:44] LABS: Albumin 2.9 g/dL (3.4-5.0); Calcium 8.4 mg/dL (8.5-10.1); Potassium 3.9 mmol/L (3.5-5.1)
[2020-06-13 22:48] LABS: BUN/Creatinine Ratio 43.2; Bilirubin, Total 0.7 mg/dL (0.2-1.0); Total Protein 6.6 g/dL (6.4-8.2)
[2020-06-14] VITALS: BP 98/51
[2020-06-14 03:39] LABS: INR 1.2 (0.9-1.15)
[2020-06-14] MEDS: BUDESONIDE (INHALATION) 180 MCG IH IN SCH ×2 (06:04→19:50)
[2020-06-14] MEDS: ALBUTEROL SULF HFA 90MCG INH 200DOSE IN PRN ×2 (06:04→19:50)
[2020-06-14 06:19] LABS: CRP High Sensitivity 0.23 mg/dL (< 0.3)
[2020-06-14] MEDS: ACETAMINOPHEN 500 MG TAB PO PRN ×2 (07:00→15:26)
[2020-06-14 08:00] VITALS: BP 94/68
[2020-06-14] MEDS: ZINC SULFATE 220mg CAP or TAB PO SCH (09:33)
[2020-06-14] MEDS: DexAMETHasone SOD PHOS 10MG/1ML VIAL INJ IV SCH (09:33)
[2020-06-14] MEDS: FAMOTIDINE 20 MG TAB PO SCH (09:33)
[2020-06-14] MEDS: FLORASTOR (S. BOULARDII) 250 MG CAP PO SCH (09:33)
[2020-06-14] MEDS: ASCORBIC ACID 1,000 MG TAB PO SCH (09:33)
[2020-06-14] MEDS: CHOLECALCIFEROL (VITD3) 2,000 UNIT CAP/TAB PO SCH (09:33)
[2020-06-14] MEDS: ENOXAPARIN SOD 40 MG/0.4 ML SYRINGE SC SCH ×2 (09:33→22:50)
[2020-06-14] MEDS: FLUCONAZOLE 100 MG TAB PO SCH (09:33)
[2020-06-14 14:50] VITALS: BP 98/67
[2020-06-14 15:45] VITALS: BP 98/67
[2020-06-14 19:50] VITALS: BP 114/73
[2020-06-15] VITALS (56 sets, daily range): BP systolic 83–147; BP diastolic 56–93
[2020-06-15] MEDS: LORazepam 2MG/ML-1ML VIAL IV PRN (00:02)
[2020-06-15] MEDS ORDERED: ETOMIDATE (2MG/ML) 20ML VIAL IV ONE (02:55)
[2020-06-15] MEDS ORDERED: SUCCINYLCHOLINE CHLORIDE 20 MG/ML 10ML VIAL IV ONE (02:57)
[2020-06-15] MEDS ORDERED: NOREPINEPHRINE 8 MG/250ML KIT 250 ML IV ONE ×2 (03:03→03:12)
[2020-06-15] MEDS ORDERED: PROPOFOL 100 ML IV ONE (03:03)
[2020-06-15] MEDS ORDERED: PROPOFOL 200 ML IV ONE (03:11)
[2020-06-15] MEDS: PROPOFOL 100 ML IV SCH ×4 (03:45→19:00)
[2020-06-15] MEDS: MIDAZOLAM DRIP 50 mg/50mL 50 ML IV SCH ×2 (03:45→19:01)
[2020-06-15] MEDS: NOREPINEPHRINE 8 MG/250ML KIT 250 ML IV SCH (03:50)
[2020-06-15] MEDS: fentaNYL Drip 2500mCg/250mlNS 250 ML IV SCH (07:00)
[2020-06-15] MEDS: ZINC SULFATE 220mg CAP or TAB PO SCH (10:24)
[2020-06-15] MEDS: FLUCONAZOLE 100 MG TAB PO SCH (10:24)
[2020-06-15] MEDS: DexAMETHasone SOD PHOS 10MG/1ML VIAL INJ IV SCH (10:24)
[2020-06-15] MEDS: FAMOTIDINE 20 MG TAB PO SCH (10:25)
[2020-06-15] MEDS: FLORASTOR (S. BOULARDII) 250 MG CAP PO SCH (10:25)
[2020-06-15] MEDS: CHOLECALCIFEROL (VITD3) 2,000 UNIT CAP/TAB PO SCH (10:25)
[2020-06-15] MEDS: ENOXAPARIN SOD 40 MG/0.4 ML SYRINGE SC SCH ×2 (10:26→14:24)
[2020-06-15] MEDS: ASCORBIC ACID 1,000 MG TAB PO SCH (10:26)
[2020-06-15] MEDS: PIPERACILLIN-TAZOB 3.375GM 100 ML IV SCH (18:59)
[2020-06-16] VITALS (62 sets, daily range): BP systolic 86–154; BP diastolic 51–92
[2020-06-16] MEDS: NOREPINEPHRINE 8 MG/250ML KIT 250 ML IV SCH (01:40)
[2020-06-16] MEDS: MIDAZOLAM DRIP 50 mg/50mL 50 ML IV SCH ×3 (02:50→15:00)
[2020-06-16] MEDS: fentaNYL Drip 2500mCg/250mlNS 250 ML IV SCH (04:15)
[2020-06-16 04:50] LABS: Albumin 2.4 g/dL (3.4-5.0); Calcium 8.1 mg/dL (8.5-10.1); Magnesium 2.8 mg/dL (1.6-2.6); Potassium 3.4 mmol/L (3.5-5.1)
[2020-06-16 04:54] LABS: Bilirubin, Total 0.6 mg/dL (0.2-1.0); Total Protein 6.2 g/dL (6.4-8.2)
[2020-06-16 04:55] LABS: Basophils # (auto) 0 10 ^3/uL (0-0.2); Basophils % (auto) 0.1 % (0.0-2.0); Eosinophils # (auto) 0 10 ^3/uL (0-0.8); Eosinophils % (auto) 0.1 % (0.0-7.0); Hematocrit 43.4 % (36.0-46.0); Hemoglobin 14.7 g/dL (12.2-16.2); Lymphocytes # (auto) 0.4 10 ^3/uL (0.4-5.4); Lymphocytes % (auto) 2.6 % (10.0-50.0); Mean Corpuscular Hemoglobin 29.6 pg (28.0-32.0); Mean Corpuscular Hgb Conc. 33.9 g/dL (32.0-36.0); Mean Corpuscular Volume 87.2 fL (80.0-100.0); Monocytes # (auto) 0.2 10 ^3/uL (0-1.3); Monocytes % (auto) 1.2 % (0.0-12.0); Neutrophils # (auto) 15.3 10 ^3/uL (1.6-8.6); Nucleated Red Blood Cells % 0.2 %; Platelet Count (auto) 159 10^3/uL (140-450); Red Blood Cells 4.97 10^6/uL (4.0-5.20); Red Cell Distribution Width 13.1 % (11.8-14.3); White Blood Cell 15.9 10^3/uL (4.4-10.8)
[2020-06-16 05:03] LABS: BUN/Creatinine Ratio 32.8
[2020-06-16 05:05] LABS: CRP High Sensitivity 9.95 mg/dL (< 0.3)
[2020-06-16] MEDS: PIPERACILLIN-TAZOB 3.375GM 100 ML IV SCH ×4 (06:07→17:32)
[2020-06-16] MEDS: FUROSEMIDE 40 MG/4 ML VIAL IV SCH (10:01)
[2020-06-16] MEDS: ZINC SULFATE 220mg CAP or TAB PO SCH (10:01)
[2020-06-16] MEDS: FLUCONAZOLE 100 MG TAB PO SCH (10:01)
[2020-06-16] MEDS: FAMOTIDINE 20 MG TAB PO SCH (10:02)
[2020-06-16] MEDS: FLORASTOR (S. BOULARDII) 250 MG CAP PO SCH (10:02)
[2020-06-16] MEDS: ASCORBIC ACID 1,000 MG TAB PO SCH (10:02)
[2020-06-16] MEDS: CHOLECALCIFEROL (VITD3) 2,000 UNIT CAP/TAB PO SCH (10:03)
[2020-06-16] MEDS: ENOXAPARIN SOD 40 MG/0.4 ML SYRINGE SC SCH ×2 (10:03→22:00)
[2020-06-16] MEDS: PROPOFOL 100 ML IV SCH ×2 (10:25→15:00)
[2020-06-16 11:03] LABS: Partial Thromboplastin Time 23.4 sec (23.0-31.2)
[2020-06-16] MEDS ORDERED: POTASSIUM CHL 20 Meq TABLET PO ONE (13:15)
[2020-06-16] MEDS ORDERED: POTASSIUM EFFERVESENT TAB 25 MEQ GT ONE (13:45)
[2020-06-16] MEDS ORDERED: REMDESIVIR PER PHARMACY 0 ML IV SCH (15:15)
[2020-06-17] VITALS (58 sets, daily range): BP systolic 82–199; BP diastolic 48–93
[2020-06-17] MEDS: fentaNYL Drip 2500mCg/250mlNS 250 ML IV SCH (04:15)
[2020-06-17] MEDS: PIPERACILLIN-TAZOB 3.375GM 100 ML IV SCH ×4 (06:00→18:00)
[2020-06-17 07:42] LABS: Albumin 2.5 g/dL (3.4-5.0); Calcium 8.5 mg/dL (8.5-10.1); Potassium 4.1 mmol/L (3.5-5.1)
[2020-06-17] MEDS: NOREPINEPHRINE 8 MG/250ML KIT 250 ML IV SCH ×2 (07:44→12:00)
[2020-06-17 07:45] LABS: BUN/Creatinine Ratio 26.4; Bilirubin, Total 0.6 mg/dL (0.2-1.0); Total Protein 6.6 g/dL (6.4-8.2)
[2020-06-17] MEDS: MIDAZOLAM DRIP 50 mg/50mL 50 ML IV SCH ×4 (09:00→22:04)
[2020-06-17] MEDS: CHOLECALCIFEROL (VITD3) 2,000 UNIT CAP/TAB PO SCH (10:00)
[2020-06-17] MEDS: FUROSEMIDE 40 MG/4 ML VIAL IV SCH (10:14)
[2020-06-17] MEDS: FLUCONAZOLE 100 MG TAB PO SCH (10:15)
[2020-06-17] MEDS: ZINC SULFATE 220mg CAP or TAB PO SCH (10:15)
[2020-06-17] MEDS: ASCORBIC ACID 1,000 MG TAB PO SCH (10:16)
[2020-06-17] MEDS: FAMOTIDINE 20 MG TAB PO SCH (10:16)
[2020-06-17] MEDS: ENOXAPARIN SOD 40 MG/0.4 ML SYRINGE SC SCH ×2 (10:17→21:28)
[2020-06-17] MEDS: FLORASTOR (S. BOULARDII) 250 MG CAP PO SCH (10:28)
[2020-06-17] MEDS: PROPOFOL 100 ML IV SCH ×3 (12:00→22:03)
[2020-06-18] VITALS (75 sets, daily range): BP systolic 89–145; BP diastolic 55–80
[2020-06-18] MEDS: PIPERACILLIN-TAZOB 3.375GM 100 ML IV SCH ×4 (00:20→18:03)
[2020-06-18] MEDS: MIDAZOLAM DRIP 50 mg/50mL 50 ML IV SCH ×3 (02:39→15:50)
[2020-06-18] MEDS: fentaNYL Drip 2500mCg/250mlNS 250 ML IV SCH (04:15)
[2020-06-18 04:44] LABS: Mean Corpuscular Hemoglobin 30.1 pg (28.0-32.0); Mean Corpuscular Hgb Conc. 34.2 g/dL (32.0-36.0); Platelet Count (auto) 151 10^3/uL (140-450); Red Blood Cells 4.32 10^6/uL (4.0-5.20); Red Cell Distribution Width 13.5 % (11.8-14.3); White Blood Cell 14.3 10^3/uL (4.4-10.8)
[2020-06-18 05:01] LABS: Albumin 2.5 g/dL (3.4-5.0); Calcium 8.2 mg/dL (8.5-10.1); Potassium 3.1 mmol/L (3.5-5.1)
[2020-06-18 05:06] LABS: BUN/Creatinine Ratio 31.5; Bilirubin, Total 0.6 mg/dL (0.2-1.0); Total Protein 6.1 g/dL (6.4-8.2)
[2020-06-18 05:40] LABS: Basophils % (manual) 0 (0.0-2.0); Blast Cells 0; Eosinophils % (manual) 0 (0-7); Promyelocytes % 0; Reactive Lymphocytes 0
[2020-06-18 08:01] LABS: Band Neutrophils % (manual) 1; Lymphocytes % (manual) 6 (10.0-50.0); Metamyelocytes % 1; Monocytes % (manual) 2 (0-12); Myelocytes % 1
[2020-06-18] MEDS: ZINC SULFATE 220mg CAP or TAB PO SCH (09:46)
[2020-06-18] MEDS: FLORASTOR (S. BOULARDII) 250 MG CAP PO SCH (09:46)
[2020-06-18] MEDS: FLUCONAZOLE 100 MG TAB PO SCH (09:46)
[2020-06-18] MEDS: ASCORBIC ACID 1,000 MG TAB PO SCH (09:47)
[2020-06-18] MEDS: CHOLECALCIFEROL (VITD3) 2,000 UNIT CAP/TAB PO SCH (09:47)
[2020-06-18] MEDS: FAMOTIDINE 20 MG TAB PO SCH (09:47)
[2020-06-18] MEDS: ENOXAPARIN SOD 40 MG/0.4 ML SYRINGE SC SCH ×2 (09:47→21:47)
[2020-06-18] MEDS: PROPOFOL 100 ML IV SCH ×3 (10:50→18:06)
[2020-06-18] MEDS: POTASSIUM CHL 20MEQ/100ML 100 ML IV SCH ×3 (14:30→17:30)
[2020-06-19] VITALS (63 sets, daily range): BP systolic 84–118; BP diastolic 52–73
[2020-06-19] MEDS: PIPERACILLIN-TAZOB 3.375GM 100 ML IV SCH ×5 (00:36→23:10)
[2020-06-19] MEDS: PROPOFOL 100 ML IV SCH ×4 (02:04→19:00)
[2020-06-19] MEDS: NOREPINEPHRINE 8 MG/250ML KIT 250 ML IV SCH (02:16)
[2020-06-19] MEDS: MIDAZOLAM DRIP 50 mg/50mL 50 ML IV SCH ×3 (02:17→19:00)
[2020-06-19] MEDS: fentaNYL Drip 2500mCg/250mlNS 250 ML IV SCH (04:15)
[2020-06-19 05:22] LABS: Hemoglobin 12.9 g/dL (12.2-16.2); Mean Corpuscular Hemoglobin 29.9 pg (28.0-32.0); Mean Corpuscular Hgb Conc. 33.9 g/dL (32.0-36.0); Mean Corpuscular Volume 88.2 fL (80.0-100.0); Platelet Count (auto) 136 10^3/uL (140-450); Red Blood Cells 4.31 10^6/uL (4.0-5.20); White Blood Cell 14.1 10^3/uL (4.4-10.8)
[2020-06-19 05:41] LABS: Albumin 2.3 g/dL (3.4-5.0); Calcium 8.2 mg/dL (8.5-10.1); Potassium 3.4 mmol/L (3.5-5.1)
[2020-06-19 05:45] LABS: Bilirubin, Total 0.6 mg/dL (0.2-1.0)
[2020-06-19 05:48] LABS: BUN/Creatinine Ratio 26.7
[2020-06-19 06:45] LABS: Basophils % (manual) 0 (0.0-2.0); Blast Cells 0; Promyelocytes % 0; Reactive Lymphocytes 0
[2020-06-19 07:57] LABS: Band Neutrophils % (manual) 3; Eosinophils % (manual) 9 (0-7); Lymphocytes % (manual) 11 (10.0-50.0); Metamyelocytes % 3; Monocytes % (manual) 3 (0-12); Myelocytes % 1
[2020-06-19] MEDS: POTASSIUM CHL 20MEQ/100ML 100 ML IV SCH ×3 (09:23→11:30)
[2020-06-19] MEDS: FAMOTIDINE 20 MG TAB PO SCH (10:29)
[2020-06-19] MEDS: FLORASTOR (S. BOULARDII) 250 MG CAP PO SCH (10:29)
[2020-06-19] MEDS: ZINC SULFATE 220mg CAP or TAB PO SCH (10:29)
[2020-06-19] MEDS: ASCORBIC ACID 1,000 MG TAB PO SCH (10:30)
[2020-06-19] MEDS: ENOXAPARIN SOD 40 MG/0.4 ML SYRINGE SC SCH ×2 (10:30→22:00)
[2020-06-19] MEDS: CHOLECALCIFEROL (VITD3) 2,000 UNIT CAP/TAB PO SCH (10:30)
[2020-06-19] MEDS: FLUCONAZOLE 100 MG TAB PO SCH (10:39)
[2020-06-20] VITALS (76 sets, daily range): BP systolic 82–142; BP diastolic 52–75
[2020-06-20] MEDS: NOREPINEPHRINE 8 MG/250ML KIT 250 ML IV SCH (03:15)
[2020-06-20] MEDS: fentaNYL Drip 2500mCg/250mlNS 250 ML IV SCH (04:15)
[2020-06-20] MEDS ORDERED: NOREPINEPHRINE BITARTRATE 2 ML IV ONE (04:30)
[2020-06-20 04:54] LABS: Hematocrit 35.2 % (36.0-46.0); Hemoglobin 11.9 g/dL (12.2-16.2); Mean Corpuscular Hemoglobin 30.2 pg (28.0-32.0); Mean Corpuscular Hgb Conc. 33.9 g/dL (32.0-36.0); Mean Corpuscular Volume 88.9 fL (80.0-100.0); Platelet Count (auto) 118 10^3/uL (140-450); Red Blood Cells 3.96 10^6/uL (4.0-5.20); Red Cell Distribution Width 14.5 % (11.8-14.3); White Blood Cell 13.4 10^3/uL (4.4-10.8)
[2020-06-20] MEDS: PIPERACILLIN-TAZOB 3.375GM 100 ML IV SCH ×4 (05:13→23:47)
[2020-06-20 05:31] LABS: Basophils % (manual) 0 (0.0-2.0); Blast Cells 0; Myelocytes % 0; Promyelocytes % 0; Reactive Lymphocytes 0
[2020-06-20 05:46] LABS: Calcium 8.2 mg/dL (8.5-10.1)
[2020-06-20 05:49] LABS: Eosinophils % (manual) 9 (0-7); Lymphocytes % (manual) 8 (10.0-50.0); Metamyelocytes % 1
[2020-06-20 05:50] LABS: BUN/Creatinine Ratio 24.1; Band Neutrophils % (manual) 2; Bilirubin, Total 0.5 mg/dL (0.2-1.0); Monocytes % (manual) 2 (0-12); Total Protein 5.8 g/dL (6.4-8.2)
[2020-06-20] MEDS: ENOXAPARIN SOD 40 MG/0.4 ML SYRINGE SC SCH ×2 (10:00→21:54)
[2020-06-20] MEDS: ZINC SULFATE 220mg CAP or TAB PO SCH (10:54)
[2020-06-20] MEDS: FAMOTIDINE 20 MG TAB PO SCH (10:54)
[2020-06-20] MEDS: FLUCONAZOLE 100 MG TAB PO SCH (10:54)
[2020-06-20] MEDS: FLORASTOR (S. BOULARDII) 250 MG CAP PO SCH (10:54)
[2020-06-20] MEDS: CHOLECALCIFEROL (VITD3) 2,000 UNIT CAP/TAB PO SCH (10:55)
[2020-06-20] MEDS: ASCORBIC ACID 1,000 MG TAB PO SCH (10:55)
[2020-06-20] MEDS ORDERED: DEXTROSE (50%) 50ML SYRG IV PRN (11:00)
[2020-06-20] MEDS: InsuLIN REG 1unit/0.01ml Soln (100units/ml) SC SCH ×3 (12:00→23:47)
[2020-06-20] MEDS: ACCU-CHEK COMFORT CURVE STRIP VI SCH ×3 (12:00→23:47)
[2020-06-20] MEDS: METOCLOPRAMIDE HCL 5MG/ml INJ 2ml VIAL IV SCH (21:53)
[2020-06-20] MEDS: PROPOFOL 100 ML IV SCH (23:48)
[2020-06-21] VITALS (96 sets, daily range): BP systolic 91–136; BP diastolic 42–72
[2020-06-21] MEDS: fentaNYL Drip 2500mCg/250mlNS 250 ML IV SCH (04:15)
[2020-06-21] MEDS: MIDAZOLAM DRIP 50 mg/50mL 50 ML IV SCH ×3 (06:06→23:13)
[2020-06-21] MEDS: NOREPINEPHRINE 8 MG/250ML KIT 250 ML IV SCH (06:06)
[2020-06-21] MEDS: METOCLOPRAMIDE HCL 5MG/ml INJ 2ml VIAL IV SCH ×3 (06:13→21:23)
[2020-06-21] MEDS: PIPERACILLIN-TAZOB 3.375GM 100 ML IV SCH ×4 (06:13→23:21)
[2020-06-21] MEDS: ACCU-CHEK COMFORT CURVE STRIP VI SCH ×3 (06:14→18:00)
[2020-06-21] MEDS: InsuLIN REG 1unit/0.01ml Soln (100units/ml) SC SCH ×3 (06:16→18:00)
[2020-06-21] MEDS: PROPOFOL 100 ML IV SCH ×2 (08:46→18:54)
[2020-06-21] MEDS: ZINC SULFATE 220mg CAP or TAB PO SCH (09:33)
[2020-06-21] MEDS: CHOLECALCIFEROL (VITD3) 2,000 UNIT CAP/TAB PO SCH (09:34)
[2020-06-21] MEDS: ASCORBIC ACID 1,000 MG TAB PO SCH (09:34)
[2020-06-21] MEDS: FLUCONAZOLE 100 MG TAB PO SCH (09:34)
[2020-06-21] MEDS: ENOXAPARIN SOD 40 MG/0.4 ML SYRINGE SC SCH ×2 (09:35→21:23)
[2020-06-21] MEDS: FAMOTIDINE 20 MG TAB PO SCH (09:35)
[2020-06-21] MEDS: FLORASTOR (S. BOULARDII) 250 MG CAP PO SCH (11:16)
[2020-06-22] VITALS (95 sets, daily range): BP systolic 92–151; BP diastolic 42–72
[2020-06-22] MEDS: ACCU-CHEK COMFORT CURVE STRIP VI SCH ×5 (00:09→23:18)
[2020-06-22] MEDS: InsuLIN REG 1unit/0.01ml Soln (100units/ml) SC SCH ×5 (00:10→23:18)
[2020-06-22] MEDS: NOREPINEPHRINE 8 MG/250ML KIT 250 ML IV SCH ×2 (01:30→15:23)
[2020-06-22] MEDS: fentaNYL Drip 2500mCg/250mlNS 250 ML IV SCH (04:15)
[2020-06-22] MEDS: PROPOFOL 100 ML IV SCH (06:00)
[2020-06-22] MEDS: PIPERACILLIN-TAZOB 3.375GM 100 ML IV SCH ×3 (06:13→17:39)
[2020-06-22 06:17] LABS: Hematocrit 31.2 % (36.0-46.0); Hemoglobin 10.6 g/dL (12.2-16.2); Mean Corpuscular Hemoglobin 30.7 pg (28.0-32.0); Mean Corpuscular Volume 90.3 fL (80.0-100.0); Platelet Count (auto) 114 10^3/uL (140-450); Red Blood Cells 3.45 10^6/uL (4.0-5.20); Red Cell Distribution Width 14.6 % (11.8-14.3); White Blood Cell 8.6 10^3/uL (4.4-10.8)
[2020-06-22 06:22] LABS: Potassium 3.9 mmol/L (3.5-5.1)
[2020-06-22 06:28] LABS: Albumin 1.8 g/dL (3.4-5.0); BUN/Creatinine Ratio 20.4; Bilirubin, Total 0.4 mg/dL (0.2-1.0); Calcium 8.4 mg/dL (8.5-10.1); Total Protein 5.7 g/dL (6.4-8.2)
[2020-06-22 06:51] LABS: Basophils % (manual) 0 (0.0-2.0); Blast Cells 0; Myelocytes % 0; Promyelocytes % 0; Reactive Lymphocytes 0
[2020-06-22] MEDS: METOCLOPRAMIDE HCL 5MG/ml INJ 2ml VIAL IV SCH ×3 (07:37→21:31)
[2020-06-22] MEDS: FLORASTOR (S. BOULARDII) 250 MG CAP PO SCH (07:38)
[2020-06-22] MEDS: ZINC SULFATE 220mg CAP or TAB PO SCH (07:38)
[2020-06-22] MEDS: FAMOTIDINE 20 MG TAB PO SCH (07:38)
[2020-06-22] MEDS: FLUCONAZOLE 100 MG TAB PO SCH (07:38)
[2020-06-22] MEDS: ASCORBIC ACID 1,000 MG TAB PO SCH (07:39)
[2020-06-22] MEDS: ENOXAPARIN SOD 40 MG/0.4 ML SYRINGE SC SCH ×2 (07:39→21:31)
[2020-06-22] MEDS ORDERED: CHOLECALCIFEROL (VITD3) 1,000UNIT=25mCg TAB ONE (07:43)
[2020-06-22] MEDS: CHOLECALCIFEROL (VITD3) 1,000UNIT=25mCg TAB PO SCH (08:15)
[2020-06-22 09:11] LABS: Band Neutrophils % (manual) 4; Eosinophils % (manual) 3 (0-7); Lymphocytes % (manual) 12 (10.0-50.0); Metamyelocytes % 2; Monocytes % (manual) 4 (0-12)
[2020-06-22] MEDS: MIDAZOLAM DRIP 50 mg/50mL 50 ML IV SCH (14:08)
[2020-06-22] MEDS ORDERED: MIDAZOLAM HCL 1MG/1ML-2 ML VIAL ONE ×2 (15:26→16:15)
[2020-06-22] MEDS ORDERED: MORPHINE SULF(PF) 0.5MG/ML 10ML VIAL ONE ×2 (15:26→16:15)
[2020-06-22] MEDS ORDERED: SODIUM BICARBONATE 8.4 % INJ 50ML VIAL IV ONE (15:26)
[2020-06-22] MEDS ORDERED: oxyTOCIN 10 UNIT/ML 10ML VIAL ONE ×2 (15:26→16:16)
[2020-06-22] MEDS ORDERED: ONDANSETRON HCL 4 MG/2 ML VIAL ONE ×3 (15:26→16:15)
[2020-06-22] MEDS ORDERED: SODIUM CHLORIDE LOCK 0 ML ONE (15:26)
[2020-06-22] MEDS ORDERED: fentaNYL CITRATE 100 MCG/2 ML VL ONE ×2 (15:26→16:15)
[2020-06-22] MEDS ORDERED: LIDOCAINE HCL 2 %PF INJ 10ML AMP IJ ONE ×2 (15:26→16:15)
[2020-06-22] MEDS ORDERED: SODIUM CHLORIDE LOCK 10 ML ONE (16:15)
[2020-06-23] VITALS (94 sets, daily range): BP systolic 87–133; BP diastolic 42–71
[2020-06-23] MEDS: PIPERACILLIN-TAZOB 3.375GM 100 ML IV SCH ×5 (00:50→23:48)
[2020-06-23] MEDS: PROPOFOL 100 ML IV SCH ×3 (03:00→21:36)
[2020-06-23] MEDS: InsuLIN REG 1unit/0.01ml Soln (100units/ml) SC SCH ×4 (06:00→23:41)
[2020-06-23] MEDS: METOCLOPRAMIDE HCL 5MG/ml INJ 2ml VIAL IV SCH ×3 (06:00→22:00)
[2020-06-23] MEDS: ACCU-CHEK COMFORT CURVE STRIP VI SCH ×4 (06:18→23:41)
[2020-06-23 06:37] LABS: Hematocrit 30.8 % (36.0-46.0); Hemoglobin 10.3 g/dL (12.2-16.2); Mean Corpuscular Hemoglobin 30.6 pg (28.0-32.0); Mean Corpuscular Hgb Conc. 33.5 g/dL (32.0-36.0); Mean Corpuscular Volume 91.3 fL (80.0-100.0); Platelet Count (auto) 119 10^3/uL (140-450); Red Blood Cells 3.37 10^6/uL (4.0-5.20); Red Cell Distribution Width 15.3 % (11.8-14.3)
[2020-06-23 07:00] LABS: Basophils % (manual) 0 (0.0-2.0); Blast Cells 0; Myelocytes % 0; Promyelocytes % 0; Reactive Lymphocytes 0
[2020-06-23 07:05] LABS: Potassium 4.2 mmol/L (3.5-5.1)
[2020-06-23 07:12] LABS: BUN/Creatinine Ratio 18.3; Calcium 8.5 mg/dL (8.5-10.1)
[2020-06-23] MEDS: ENOXAPARIN SOD 40 MG/0.4 ML SYRINGE SC SCH ×2 (10:00→22:00)
[2020-06-23] MEDS: FLORASTOR (S. BOULARDII) 250 MG CAP PO SCH (10:00)
[2020-06-23] MEDS: ASCORBIC ACID 1,000 MG TAB PO SCH (10:00)
[2020-06-23] MEDS: CHOLECALCIFEROL (VITD3) 1,000UNIT=25mCg TAB PO SCH (10:00)
[2020-06-23] MEDS: FAMOTIDINE 20 MG TAB PO SCH (10:00)
[2020-06-23] MEDS: ZINC SULFATE 220mg CAP or TAB PO SCH (10:00)
[2020-06-23] MEDS: FLUCONAZOLE 100 MG TAB PO SCH (10:00)
[2020-06-23 10:25] LABS: Band Neutrophils % (manual) 7; Eosinophils % (manual) 7 (0-7); Lymphocytes % (manual) 9 (10.0-50.0); Metamyelocytes % 4; Monocytes % (manual) 5 (0-12)
[2020-06-23] MEDS: MIDAZOLAM DRIP 50 mg/50mL 50 ML IV SCH (22:05)
[2020-06-24] VITALS (95 sets, daily range): BP systolic 94–130; BP diastolic 36–70
[2020-06-24] MEDS: PROPOFOL 100 ML IV SCH ×3 (02:05→16:58)
[2020-06-24 04:22] LABS: Basophils # (auto) 0.1 10 ^3/uL (0-0.2); Basophils % (auto) 0.7 % (0.0-2.0); Eosinophils # (auto) 0.6 10 ^3/uL (0-0.8); Eosinophils % (auto) 8.4 % (0.0-7.0); Hematocrit 28.4 % (36.0-46.0); Hemoglobin 9.4 g/dL (12.2-16.2); Lymphocytes # (auto) 0.8 10 ^3/uL (0.4-5.4); Lymphocytes % (auto) 11.7 % (10.0-50.0); Mean Corpuscular Hemoglobin 30.2 pg (28.0-32.0); Mean Corpuscular Volume 91.4 fL (80.0-100.0); Monocytes # (auto) 0.5 10 ^3/uL (0-1.3); Monocytes % (auto) 6.7 % (0.0-12.0); Neutrophils # (auto) 5.2 10 ^3/uL (1.6-8.6); Neutrophils % (auto) 72.5 % (37.0-80.0); Nucleated Red Blood Cells % 0.1 %; Platelet Count (auto) 121 10^3/uL (140-450); Red Blood Cells 3.11 10^6/uL (4.0-5.20); Red Cell Distribution Width 15.7 % (11.8-14.3); White Blood Cell 7.2 10^3/uL (4.4-10.8)
[2020-06-24 05:01] LABS: Potassium 4.2 mmol/L (3.5-5.1)
[2020-06-24 05:09] LABS: Albumin 1.7 g/dL (3.4-5.0); BUN/Creatinine Ratio 18.6; Bilirubin, Total 0.3 mg/dL (0.2-1.0); Calcium 8.5 mg/dL (8.5-10.1); Total Protein 5.4 g/dL (6.4-8.2)
[2020-06-24] MEDS: InsuLIN REG 1unit/0.01ml Soln (100units/ml) SC SCH ×4 (06:00→23:11)
[2020-06-24] MEDS: METOCLOPRAMIDE HCL 5MG/ml INJ 2ml VIAL IV SCH ×3 (06:00→22:00)
[2020-06-24] MEDS: PIPERACILLIN-TAZOB 3.375GM 100 ML IV SCH ×4 (06:23→23:37)
[2020-06-24] MEDS: ACCU-CHEK COMFORT CURVE STRIP VI SCH ×4 (06:24→23:11)
[2020-06-24] MEDS: ASCORBIC ACID 1,000 MG TAB PO SCH (10:00)
[2020-06-24] MEDS: Jevity 1.2 Cal/Fiber 1 Liter GT SCH (10:00)
[2020-06-24] MEDS: ENOXAPARIN SOD 40 MG/0.4 ML SYRINGE SC SCH ×2 (10:00→22:44)
[2020-06-24] MEDS: FLORASTOR (S. BOULARDII) 250 MG CAP PO SCH (10:28)
[2020-06-24] MEDS: ZINC SULFATE 220mg CAP or TAB PO SCH (10:28)
[2020-06-24] MEDS: FLUCONAZOLE 100 MG TAB PO SCH (10:28)
[2020-06-24] MEDS: FAMOTIDINE 20 MG TAB PO SCH (10:28)
[2020-06-24] MEDS: CHOLECALCIFEROL (VITD3) 1,000UNIT=25mCg TAB PO SCH (10:29)
[2020-06-24 18:28] LABS: Urine Bacteria FEW /hpf (None Seen); Urine Blood 3+ /uL (Negative); Urine Specific Gravity 1.026 (1.001-1.035); Urine WBC 10 /hpf (0 - 5)
[2020-06-24] MEDS: MIDAZOLAM DRIP 50 mg/50mL 50 ML IV SCH (20:28)
[2020-06-25] VITALS (73 sets, daily range): BP systolic 93–126; BP diastolic 36–68
[2020-06-25] MEDS: MIDAZOLAM DRIP 50 mg/50mL 50 ML IV SCH ×2 (01:20→17:53)
[2020-06-25] MEDS: PROPOFOL 100 ML IV SCH ×2 (03:30→08:45)
[2020-06-25] MEDS: ACCU-CHEK COMFORT CURVE STRIP VI SCH ×3 (05:48→18:00)
[2020-06-25] MEDS: PIPERACILLIN-TAZOB 3.375GM 100 ML IV SCH ×3 (05:49→17:53)
[2020-06-25] MEDS: METOCLOPRAMIDE HCL 5MG/ml INJ 2ml VIAL IV SCH ×3 (05:58→22:00)
[2020-06-25] MEDS: InsuLIN REG 1unit/0.01ml Soln (100units/ml) SC SCH ×3 (06:00→18:37)
[2020-06-25] MEDS: NOREPINEPHRINE 8 MG/250ML KIT 250 ML IV SCH (06:33)
[2020-06-25 09:21] LABS: Basophils # (auto) 0.2 10 ^3/uL (0-0.2); Basophils % (auto) 2.7 % (0.0-2.0); Eosinophils # (auto) 0.7 10 ^3/uL (0-0.8); Eosinophils % (auto) 8.1 % (0.0-7.0); Hematocrit 31.8 % (36.0-46.0); Hemoglobin 10.5 g/dL (12.2-16.2); Lymphocytes # (auto) 1.2 10 ^3/uL (0.4-5.4); Lymphocytes % (auto) 14.9 % (10.0-50.0); Mean Corpuscular Hemoglobin 30.6 pg (28.0-32.0); Mean Corpuscular Hgb Conc. 32.9 g/dL (32.0-36.0); Monocytes # (auto) 0.4 10 ^3/uL (0-1.3); Monocytes % (auto) 5.4 % (0.0-12.0); Neutrophils # (auto) 5.5 10 ^3/uL (1.6-8.6); Neutrophils % (auto) 68.9 % (37.0-80.0); Nucleated Red Blood Cells % 0.1 %; Platelet Count (auto) 145 10^3/uL (140-450); Red Blood Cells 3.42 10^6/uL (4.0-5.20); Red Cell Distribution Width 16.2 % (11.8-14.3)
[2020-06-25 09:44] LABS: Calcium 9.1 mg/dL (8.5-10.1); Potassium 4.5 mmol/L (3.5-5.1)
[2020-06-25] MEDS: CHOLECALCIFEROL (VITD3) 1,000UNIT=25mCg TAB PO SCH (10:00)
[2020-06-25] MEDS: ZINC SULFATE 220mg CAP or TAB PO SCH (10:00)
[2020-06-25] MEDS: Jevity 1.2 Cal/Fiber 1 Liter GT SCH (10:00)
[2020-06-25] MEDS: ASCORBIC ACID 1,000 MG TAB PO SCH (10:00)
[2020-06-25] MEDS: FLUCONAZOLE 100 MG TAB PO SCH (10:00)
[2020-06-25] MEDS: FAMOTIDINE 20 MG TAB PO SCH (10:00)
[2020-06-25] MEDS: FLORASTOR (S. BOULARDII) 250 MG CAP PO SCH (10:00)
[2020-06-25] MEDS: ENOXAPARIN SOD 40 MG/0.4 ML SYRINGE SC SCH ×2 (10:01→22:00)
[2020-06-25] MEDS ORDERED: VASOPRESSIN 20 UNIT/ML ONE (12:59)
[2020-06-26] VITALS (51 sets, daily range): BP systolic 89–176; BP diastolic 42–86
[2020-06-26] MEDS: InsuLIN REG 1unit/0.01ml Soln (100units/ml) SC SCH ×4 (06:00→18:00)
[2020-06-26] MEDS: PIPERACILLIN-TAZOB 3.375GM 100 ML IV SCH ×4 (06:00→17:55)
[2020-06-26] MEDS: ACCU-CHEK COMFORT CURVE STRIP VI SCH ×4 (06:00→17:55)
[2020-06-26] MEDS: METOCLOPRAMIDE HCL 5MG/ml INJ 2ml VIAL IV SCH ×3 (06:00→22:00)
[2020-06-26] MEDS: Jevity 1.2 Cal/Fiber 1 Liter GT SCH (10:00)
[2020-06-26] MEDS: ZINC SULFATE 220mg CAP or TAB PO SCH (10:20)
[2020-06-26] MEDS: FLUCONAZOLE 100 MG TAB PO SCH (10:20)
[2020-06-26] MEDS: FLORASTOR (S. BOULARDII) 250 MG CAP PO SCH (10:20)
[2020-06-26] MEDS: FAMOTIDINE 20 MG TAB PO SCH (10:21)
[2020-06-26] MEDS: ENOXAPARIN SOD 40 MG/0.4 ML SYRINGE SC SCH ×2 (10:21→22:00)
[2020-06-26] MEDS: ASCORBIC ACID 1,000 MG TAB PO SCH (10:21)
[2020-06-26] MEDS: CHOLECALCIFEROL (VITD3) 1,000UNIT=25mCg TAB PO SCH (10:21)
[2020-06-26] MEDS: PROPOFOL 100 ML IV SCH ×2 (10:26→18:23)
[2020-06-26] MEDS: NOREPINEPHRINE 8 MG/250ML KIT 250 ML IV SCH ×2 (13:19→16:18)
[2020-06-26] MEDS: MIDAZOLAM DRIP 50 mg/50mL 50 ML IV SCH (18:53)
[2020-06-27] VITALS (71 sets, daily range): BP systolic 74–130; BP diastolic 41–68
[2020-06-27] MEDS: NOREPINEPHRINE 8 MG/250ML KIT 250 ML IV SCH (03:15)
[2020-06-27 05:00] LABS: Basophils # (auto) 0 10 ^3/uL (0-0.2); Basophils % (auto) 0.4 % (0.0-2.0); Eosinophils # (auto) 0.7 10 ^3/uL (0-0.8); Eosinophils % (auto) 8.9 % (0.0-7.0); Hematocrit 33.4 % (36.0-46.0); Hemoglobin 10.7 g/dL (12.2-16.2); Lymphocytes # (auto) 1.6 10 ^3/uL (0.4-5.4); Lymphocytes % (auto) 21.1 % (10.0-50.0); Mean Corpuscular Hemoglobin 30.8 pg (28.0-32.0); Mean Corpuscular Hgb Conc. 31.9 g/dL (32.0-36.0); Mean Corpuscular Volume 96.6 fL (80.0-100.0); Monocytes # (auto) 0.6 10 ^3/uL (0-1.3); Monocytes % (auto) 7.9 % (0.0-12.0); Neutrophils # (auto) 4.7 10 ^3/uL (1.6-8.6); Neutrophils % (auto) 61.7 % (37.0-80.0); Nucleated Red Blood Cells % 0.4 %; Platelet Count (auto) 150 10^3/uL (140-450); Red Blood Cells 3.46 10^6/uL (4.0-5.20); Red Cell Distribution Width 17.5 % (11.8-14.3); White Blood Cell 7.7 10^3/uL (4.4-10.8)
[2020-06-27 05:22] LABS: Potassium 5.5 mmol/L (3.5-5.1)
[2020-06-27 05:33] LABS: Albumin 1.5 g/dL (3.4-5.0); Bilirubin, Total 0.3 mg/dL (0.2-1.0); Calcium 8.9 mg/dL (8.5-10.1)
[2020-06-27] MEDS: METOCLOPRAMIDE HCL 5MG/ml INJ 2ml VIAL IV SCH ×3 (06:00→21:08)
[2020-06-27] MEDS: PIPERACILLIN-TAZOB 3.375GM 100 ML IV SCH ×4 (06:00→18:45)
[2020-06-27] MEDS: InsuLIN REG 1unit/0.01ml Soln (100units/ml) SC SCH ×4 (06:00→18:00)
[2020-06-27] MEDS: ACCU-CHEK COMFORT CURVE STRIP VI SCH ×4 (06:00→18:00)
[2020-06-27] MEDS: Jevity 1.2 Cal/Fiber 1 Liter GT SCH (10:00)
[2020-06-27] MEDS: PROPOFOL 100 ML IV SCH ×2 (10:12→18:47)
[2020-06-27] MEDS: FLUCONAZOLE 100 MG TAB PO SCH (10:12)
[2020-06-27] MEDS: ZINC SULFATE 220mg CAP or TAB PO SCH (10:12)
[2020-06-27] MEDS: MIDAZOLAM DRIP 50 mg/50mL 50 ML IV SCH (10:12)
[2020-06-27] MEDS: FAMOTIDINE 20 MG TAB PO SCH (10:13)
[2020-06-27] MEDS: CHOLECALCIFEROL (VITD3) 1,000UNIT=25mCg TAB PO SCH (10:13)
[2020-06-27] MEDS: ASCORBIC ACID 1,000 MG TAB PO SCH (10:13)
[2020-06-27] MEDS: FLORASTOR (S. BOULARDII) 250 MG CAP PO SCH (10:13)
[2020-06-27] MEDS: ENOXAPARIN SOD 40 MG/0.4 ML SYRINGE SC SCH ×2 (10:14→21:09)
[2020-06-27] MEDS ORDERED: FUROSEMIDE 40 MG/4 ML VIAL IV ONE (11:00)
[2020-06-27] MEDS ORDERED: SODIUM ZIRCONIUM CYCL 10 GM PAK PO ONE (11:30)
[2020-06-27] MEDS: ACETAMINOPHEN 500 MG TAB PO PRN (17:17)
[2020-06-28] VITALS (92 sets, daily range): BP systolic 77–169; BP diastolic 34–93
[2020-06-28] MEDS: NOREPINEPHRINE 8 MG/250ML KIT 250 ML IV SCH ×3 (03:15→22:19)
[2020-06-28] MEDS: METOCLOPRAMIDE HCL 5MG/ml INJ 2ml VIAL IV SCH ×3 (05:42→21:29)
[2020-06-28] MEDS: PIPERACILLIN-TAZOB 3.375GM 100 ML IV SCH ×4 (05:43→17:35)
[2020-06-28] MEDS: ACCU-CHEK COMFORT CURVE STRIP VI SCH ×4 (05:47→17:35)
[2020-06-28] MEDS: InsuLIN REG 1unit/0.01ml Soln (100units/ml) SC SCH ×4 (05:47→19:06)
[2020-06-28 06:15] LABS: BUN/Creatinine Ratio 18.4; Calcium 8.3 mg/dL (8.5-10.1); Magnesium 2.1 mg/dL (1.6-2.6)
[2020-06-28] MEDS ORDERED: SODIUM ZIRCONIUM CYCL 10 GM PAK ONE (06:40)
[2020-06-28] MEDS ORDERED: SODIUM ZIRCONIUM CYCL 10 GM PAK PO ONE ×2 (06:45→15:30)
[2020-06-28] MEDS: FLORASTOR (S. BOULARDII) 250 MG CAP PO SCH (10:42)
[2020-06-28] MEDS: ZINC SULFATE 220mg CAP or TAB PO SCH (10:42)
[2020-06-28] MEDS: FAMOTIDINE 20 MG TAB PO SCH (10:43)
[2020-06-28] MEDS: ASCORBIC ACID 1,000 MG TAB PO SCH (10:43)
[2020-06-28] MEDS: CHOLECALCIFEROL (VITD3) 1,000UNIT=25mCg TAB PO SCH (10:43)
[2020-06-28] MEDS: ENOXAPARIN SOD 40 MG/0.4 ML SYRINGE SC SCH ×2 (10:43→21:30)
[2020-06-28] MEDS: Jevity 1.2 Cal/Fiber 1 Liter GT SCH (10:44)
[2020-06-28 10:54] LABS: Hematocrit 27.5 % (36.0-46.0); Hemoglobin 9.2 g/dL (12.2-16.2); Mean Corpuscular Hemoglobin 30.8 pg (28.0-32.0); Mean Corpuscular Hgb Conc. 33.4 g/dL (32.0-36.0); Mean Corpuscular Volume 92.2 fL (80.0-100.0); Platelet Count (auto) 180 10^3/uL (140-450); Red Blood Cells 2.98 10^6/uL (4.0-5.20); Red Cell Distribution Width 16.6 % (11.8-14.3); White Blood Cell 7.5 10^3/uL (4.4-10.8)
[2020-06-28 10:56] LABS: Basophils % (manual) 0 (0.0-2.0); Blast Cells 0; Myelocytes % 0; Promyelocytes % 0; Reactive Lymphocytes 0
[2020-06-28 14:14] LABS: Band Neutrophils % (manual) 12; Eosinophils % (manual) 11 (0-7); Lymphocytes % (manual) 11 (10.0-50.0); Metamyelocytes % 1; Monocytes % (manual) 12 (0-12)
[2020-06-28] MEDS ORDERED: PHENYLEPHRINE IV 250 ML IV ONE (15:01)
[2020-06-28] MEDS: PHENYLEPHRINE IV 250 ML IV SCH ×2 (17:30→22:16)
[2020-06-28] MEDS: PROPOFOL 100 ML IV SCH ×2 (17:37→23:41)
[2020-06-28] MEDS: MIDAZOLAM DRIP 50 mg/50mL 50 ML IV SCH (17:37)
[2020-06-28] MEDS: ACETAMINOPHEN 500 MG TAB PO PRN ×3 (21:26→22:38)
[2020-06-29] VITALS (87 sets, daily range): BP systolic 62–144; BP diastolic 22–70
[2020-06-29] MEDS: MIDAZOLAM DRIP 50 mg/50mL 50 ML IV SCH ×3 (03:00→16:27)
[2020-06-29] MEDS: PROPOFOL 100 ML IV SCH ×2 (04:47→14:49)
[2020-06-29] MEDS: InsuLIN REG 1unit/0.01ml Soln (100units/ml) SC SCH ×4 (06:00→16:14)
[2020-06-29 06:06] LABS: Potassium 3.7 mmol/L (3.5-5.1)
[2020-06-29 06:15] LABS: BUN/Creatinine Ratio 19.2; Calcium 7.5 mg/dL (8.5-10.1)
[2020-06-29] MEDS: METOCLOPRAMIDE HCL 5MG/ml INJ 2ml VIAL IV SCH ×3 (06:23→22:00)
[2020-06-29] MEDS: PIPERACILLIN-TAZOB 3.375GM 100 ML IV SCH ×4 (06:24→18:00)
[2020-06-29] MEDS: ACCU-CHEK COMFORT CURVE STRIP VI SCH ×4 (06:25→16:14)
[2020-06-29] MEDS: ASCORBIC ACID 1,000 MG TAB PO SCH (10:00)
[2020-06-29] MEDS: ENOXAPARIN SOD 40 MG/0.4 ML SYRINGE SC SCH ×2 (10:00→22:00)
[2020-06-29] MEDS: CHOLECALCIFEROL (VITD3) 1,000UNIT=25mCg TAB PO SCH (10:00)
[2020-06-29] MEDS: NOREPINEPHRINE 8 MG/250ML KIT 250 ML IV SCH ×3 (10:00→21:07)
[2020-06-29] MEDS: FLORASTOR (S. BOULARDII) 250 MG CAP PO SCH (10:00)
[2020-06-29] MEDS: PHENYLEPHRINE IV 250 ML IV SCH ×2 (10:00→14:45)
[2020-06-29] MEDS: FAMOTIDINE 20 MG TAB PO SCH (10:00)
[2020-06-29] MEDS: ZINC SULFATE 220mg CAP or TAB PO SCH (10:00)
[2020-06-29] MEDS ORDERED: VASOPRESSIN 50 UNITS in D5W 5% 247.5 ML IV SCH (16:45)
[2020-06-29] MEDS: PHENYLEPHRINE INJ 40 MG in SODIUM CHL 0.9% 246 ML IV SCH ×2 (17:10→20:50)
[2020-06-29] MEDS: ACETAMINOPHEN 500 MG TAB PO PRN (20:06)
[2020-06-30] MEDS: InsuLIN REG 1unit/0.01ml Soln (100units/ml) SC SCH
[2020-06-30] MEDS ORDERED: DEXTROSE 50% SYRINGE 50 ML IV ONE (00:07)
[2020-06-30] MEDS: ACCU-CHEK COMFORT CURVE STRIP VI SCH (00:19)
[2020-06-30] MEDS: PIPERACILLIN-TAZOB 3.375GM 100 ML IV SCH (00:28)
[2020-06-30] MEDS: PHENYLEPHRINE INJ 40 MG in SODIUM CHL 0.9% 246 ML IV SCH (00:29)
[2020-06-30 01:15] VITALS: BP 91/12
[2020-06-30] MEDS ORDERED: CALCIUM CHLOR(10%) 100MG/ML 10ML SYRINGE IV ONE (01:23)
[2020-06-30] MEDS ORDERED: EPINEPHrine HCL 1 MG/10 ML SYRG IV ONE (01:23)
[2020-06-30] MEDS ORDERED: SODIUM BICARBONATE 8.4% INJ 50ML SYRINGE IV ONE (01:23)
== END 2020-06-30 01:24 | DRG 207 ==
LOC: ER 09:26 → TELE 09:27 → TELE-EAST 05-29 18:13 → EAST 06-05 15:29 → TELE-E-ADS 06-07 16:54 → TELE-EAST 06-10 15:47 → TELE-E-ADS 06-11 17:19 → TELE-EAST 06-11 17:35 → TELE-E-ADS 06-11 17:37 → ICU WEST 06-15 04:05
PROVIDERS: ADMIT Nurse Practitioner Acute Care; ATTEND Internal Medicine
PROC: 06HN33Z Insertion of Infusion Device into Left Femoral Vein, Percutaneous Approach (ICD-10-PCS; 2020-06-16)
PROC: B54CZZA Ultrasonography of Left Lower Extremity Veins, Guidance (ICD-10-PCS; 2020-06-16)
PROC: XW13325 Transfusion of Convalescent Plasma (Nonautologous) into Peripheral Vein, Percutaneous Approach, New Technology Group 5 (ICD-10-PCS; 2020-06-17)
PROC: 5A1955Z Respiratory Ventilation, Greater than 96 Consecutive Hours (ICD-10-PCS; principal; 2020-06-19)
PROC: 0BH17EZ Insertion of Endotracheal Airway into Trachea, Via Natural or Artificial Opening (ICD-10-PCS; 2020-06-19)
PROC: XW033E5 Introduction of Remdesivir Anti-infective into Peripheral Vein, Percutaneous Approach, New Technology Group 5 (ICD-10-PCS; 2020-06-29)
PROC: 5A12012 Performance of Cardiac Output, Single, Manual (ICD-10-PCS; 2020-06-30)
DX: U07.1 COVID-19 (principal); A41.89 Other specified sepsis; J96.01 Acute respiratory failure with hypoxia; J12.82 Pneumonia due to coronavirus disease 2019; R65.21 Severe sepsis with septic shock; N17.0 Acute kidney failure with tubular necrosis; K62.5 Hemorrhage of anus and rectum; J44.0 Chronic obstructive pulmonary disease with (acute) lower respiratory infection; K21.9 Gastro-esophageal reflux disease without esophagitis; E66.9 Obesity, unspecified; E88.09 Other disorders of plasma-protein metabolism, not elsewhere classified; J98.2 Interstitial emphysema; N18.30 Chronic kidney disease, stage 3 unspecified; E87.5 Hyperkalemia; I12.9 Hypertensive chronic kidney disease with stage 1 through stage 4 chronic kidney disease, or unspecified chronic kidney disease; Z68.36 Body mass index [BMI] 36.0-36.9, adult; Z80.3 Family history of malignant neoplasm of breast
CPT/HCPCS: 36415; 36600; 71045; 80048; 80053; 81001; 82306; 82728; 82805; 82962; 83036; 83615; 83735; 83880; 84100; 84443; 85007; 85025; 85027; 85379; 85610; 85652; 85730; 86141; 86850; 86900; 86901; 87040; 87070; 87077; 87081; 87086; 87088; 87205; 87426; 87804; 92950; 93005; 94002; 94003; 94640; 96365; 97110; 97163; 97530; G0378; J0330; J0696; J1100; J1956; J2250; J2405; J2543; J2590; J2704; J3480; J7060